=== PATIENT | male | born 1965 | race Caucasian/White ===

== ENCOUNTER 2021-04-13 09:43 | Inpatient (IN) ==
--- NOTE | 2021-04-09 16:18 | XRay Report ---
INDICATION: Pre-Op TECHNIQUE: PA and lateral upright chest x-ray COMPARISON: Previous chest x-rays dated 06/05/2020 and 08/31/2019 FINDINGS: Somewhat suboptimal evaluation. Patient is in a wheelchair and difficult to position. There is a catheter or catheter fragment projected over the right lung base. This is probably a ventriculoperitoneal catheter. It is difficult to follow this catheter cephalad and a continuous intact catheter is not identified. This is unchanged Lungs: Lungs are negative. No focal pulmonary parenchymal infiltrate or mass Heart, vascular: No significant cardiomegaly. Pulmonary vascularity is normal. No pulmonary edema or pulmonary congestion Mediastinum, joyce: No mediastinal widening. No hilar mass Pleura:No pleural fluid. No pleural-based mass or calcification Thoracic spine, ribs: No thoracic compression fracture. Ribs are negative. No fracture. No lytic lesion IMPRESSION: No acute abnormality. No interval change Interpreted and Authenticated by: Guru Kohli 04/09/21
[2021-04-09 20:18] LABS: Partial Thromboplastin Time 33.7 sec (20.0-37.0); Prothrombin Time 14.2 sec (11.9-14.5)
[2021-04-09 20:38] LABS: Basophils # (Auto) 0.04 K/mcL (0.00-0.30); Basophils % (Auto) 0.3 % (0.0-2.0); Eosinophils # (Auto) 0.09 K/mcL (0.00-0.70); Eosinophils % (Auto) 0.7 % (0.0-7.0); Hematocrit 41.5 % (40.1-51.0); Hemoglobin 13.1 g/dL (13.7-17.5); Lymphocytes # (Auto) 1.58 K/mcL (1.50-4.80); Lymphocytes % (Auto) 12.8 % (15.5-49.0); Mean Cell Volume 81.7 fL (80.0-100.0); Mean Corpuscular HGB Conc 31.6 g/dL (31.0-36.0); Mean Platelet Volume 10.1 fL (7.4-10.4); Monocytes # (Auto) 1.19 K/mcL (0.10-0.90); Monocytes % (Auto) 9.6 % (1.0-12.0); Neutrophils % (Auto) 76.6 % (38.0-78.0); Platelet Count 293 K/mcL (140-440); RBC 5.08 M/mcL (4.63-6.08); Red Cell Distribution Width 14.6 % (11.5-14.5); WBC 12.4 K/mcL (4.5-11.0)
[2021-04-09 20:53] LABS: ALT/SGPT 14 U/L (<40); AST/SGOT 20 U/L (<40); Albumin 3.7 gm/dL (3.2-5.2); Albumin/Globulin Ratio 0.9 (1.0-2.3); Alkaline Phosphatase 85 U/L (39-117); Bilirubin,Total 0.7 mg/dL (0.1-1.0); Blood Urea Nitrogen 13 mg/dL (6-20); Calcium 9.3 mg/dL (8.6-10.4); Carbon Dioxide 23 mmol/L (22-30); Chloride 99 mmol/L (96-108); Globulin 4.3 gm/dL (2.2-3.7); Glomerular Filtration Rate 123; Glucose 95 mg/dL (70-105)
--- NOTE | 2021-04-10 16:50 | EKG ---
[facility] Test Date: 2021-04-09 Pat Name: Jerman Montanez Department: RT Room: Gender: Male Adobe Layer: : 1965 Requested By: Jero Newberry Order Number: [id number] Reading MD: Robin Viveros Measurements Intervals Max Rate: 81 P: 72 MN: 145 QRS: 38 QRSD: 101 T: 44 QT: 384 QTc: 446 Interpretive Statements Sinus rhythm LATE PRECORDIAL R/S TRANSITION Electronically Signed On 04-10-2021 16:50:40 PST by Robin Viveros /store/M0/[id number]/[email or web address]/[id number]
[~2021-04-13 09:43] MED LIST: PEG 3350/NA SULF,BICARB,CL/KCL 4,000 ML ORAL.SOL PO SCH
[2021-04-13] MEDS ORDERED: PROMETHAZINE 25 MG/ML VIAL IV PRN (12:53)
[2021-04-13] MEDS ORDERED: ONDANSETRON 4 MG/2 ML VIAL IV PRN (12:53)
[2021-04-13] MEDS ORDERED: BACLOFEN 10 MG TABLET PO SCH (13:00)
[2021-04-13] MEDS ORDERED: LEVOFLOXACIN 750 MG/150 ML BAG IV ONE (13:15)
[2021-04-13] MEDS ORDERED: metroNIDAZOLE 500 MG/100 ML BAG IV ONE (13:15)
--- NOTE | 2021-04-13 13:28 | XRay Report ---
INDICATION: PREOP EVALUATION TECHNIQUE: AP portable semiupright chest x-ray COMPARISON: Previous examinations dated 04/09/2021, 06/05/2020, 08/31/2019 FINDINGS:There is a small catheter and metallic device projected over the thoracic aorta. Lungs:Lungs are negative. No focal pulmonary parenchymal infiltrate or mass Heart, vascular:No significant cardiomegaly. Pulmonary vascularity is normal. No pulmonary edema or pulmonary congestion Mediastinum, joyce:No mediastinal widening. No hilar mass Pleura:No pleural fluid. No pleural-based mass or calcification Skeletal:Negative. IMPRESSION: No acute or new abnormality Interpreted and Authenticated by: Guru Kohli 04/13/21
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
[2021-04-13] MEDS: 0.9 % SODIUM CHLORIDE 1,000 ML IV SCH (14:03)
[2021-04-13 14:53] LABS: Basophils # (Auto) 0.05 K/mcL (0.00-0.30); Basophils % (Auto) 0.5 % (0.0-2.0); Eosinophils # (Auto) 0.13 K/mcL (0.00-0.70); Eosinophils % (Auto) 1.2 % (0.0-7.0); Hematocrit 41.6 % (40.1-51.0); Lymphocytes # (Auto) 1.89 K/mcL (1.50-4.80); Mean Cell Volume 82.1 fL (80.0-100.0); Mean Corpuscular HGB Conc 31.3 g/dL (31.0-36.0); Mean Platelet Volume 9.9 fL (7.4-10.4); Monocytes # (Auto) 0.92 K/mcL (0.10-0.90); Monocytes % (Auto) 8.3 % (1.0-12.0); Platelet Count 365 K/mcL (140-440); RBC 5.07 M/mcL (4.63-6.08); Red Cell Distribution Width 14.5 % (11.5-14.5); WBC 11.1 K/mcL (4.5-11.0)
[2021-04-13] MEDS: PANTOPRAZOLE 40 MG VIAL IV SCH (17:45)
[2021-04-13] MEDS: BACLOFEN 10 MG TABLET PO SCH ×2 (17:45→21:14)
[2021-04-13] MEDS ORDERED: BISACODYL 5 MG TABLET PO SCH (18:00)
[2021-04-13] MEDS: TERAZOSIN 1 MG CAPSULE PO SCH (21:12)
[2021-04-13] MEDS: METOPROLOL SUCCINATE 50 MG TAB.XL.24H PO SCH (21:14)
[2021-04-14] MEDS: 0.9 % SODIUM CHLORIDE 1,000 ML IV SCH ×4 (02:54→21:05)
[2021-04-14] MEDS ORDERED: IPRATROPIUM/ALBUTEROL 3 ML AMPUL.NEB NEB PRN ×2 (06:00→11:42)
[2021-04-14] MEDS ORDERED: LEVOFLOXACIN 750 MG/150 ML BAG IV SCH (06:00)
[2021-04-14] MEDS ORDERED: metroNIDAZOLE 500 MG/100 ML BAG IV SCH (06:00)
[2021-04-14] MEDS ORDERED: SCOPOLAMINE 1 PATCH PATCH TOPICAL PRN (06:00)
[2021-04-14 07:10] LABS: Basophils # (Auto) 0.03 K/mcL (0.00-0.30); Basophils % (Auto) 0.3 % (0.0-2.0); Eosinophils # (Auto) 0.08 K/mcL (0.00-0.70); Eosinophils % (Auto) 0.8 % (0.0-7.0); Hematocrit 37.2 % (40.1-51.0); Hemoglobin 12.1 g/dL (13.7-17.5); Lymphocytes % (Auto) 14.1 % (15.5-49.0); Mean Cell Volume 81.6 fL (80.0-100.0); Mean Corpuscular HGB Conc 32.5 g/dL (31.0-36.0); Mean Platelet Volume 10.2 fL (7.4-10.4); Monocytes # (Auto) 0.77 K/mcL (0.10-0.90); Monocytes % (Auto) 7.8 % (1.0-12.0); Platelet Count 293 K/mcL (140-440); RBC 4.56 M/mcL (4.63-6.08); Red Cell Distribution Width 14.5 % (11.5-14.5); WBC 9.9 K/mcL (4.5-11.0)
[2021-04-14] MEDS: PANTOPRAZOLE 40 MG VIAL IV SCH ×2 (07:29→16:57)
[2021-04-14] MEDS ORDERED: BACLOFEN 10 MG TABLET PO SCH (09:00)
[2021-04-14] MEDS ORDERED: LIDOCAINE HCL/PF 100 MG/5 ML SYRINGE IV ONE (09:59)
[2021-04-14] MEDS ORDERED: KETAMINE 50 MG/ML Syringe (ANEST) IV ONE (09:59)
[2021-04-14] MEDS ORDERED: ROCURONIUM 10 MG/ML ML IV ONE (09:59)
[2021-04-14] MEDS ORDERED: MIDAZOLAM 2 MG/2 ML VIAL ONE (09:59)
[2021-04-14] MEDS ORDERED: ePHEDrine 50 MG/5 ML SYRINGE (ANEST) IV ONE (09:59)
[2021-04-14] MEDS ORDERED: GLYCOPYRROLATE 0.2 MG/ML VIAL IV ONE (09:59)
[2021-04-14] MEDS ORDERED: PROPOFOL 200 MG/20 ML VIAL IV ONE (09:59)
[2021-04-14] MEDS ORDERED: ESMOLOL 100 MG/10 ML VIAL IV ONE (09:59)
[2021-04-14] MEDS ORDERED: DEXAMETHASONE 10 MG/ML VIAL ONE (09:59)
[2021-04-14] MEDS ORDERED: ONDANSETRON 4 MG/2 ML VIAL ONE (09:59)
[2021-04-14] MEDS ORDERED: MAGNESIUM SULFATE 2 GM/50 ML BAG IV ONE (09:59)
[2021-04-14] MEDS ORDERED: methylPREDNISolone SOD SUCC 125 MG/2 ML VIAL ONE (09:59)
[2021-04-14] MEDS ORDERED: PHENYLephrine 1 MG/10 ML SYRINGE (ANEST) ONE (09:59)
[2021-04-14] MEDS ORDERED: fentaNYL 250 MCG/5 ML VIAL IV ONE (09:59)
[2021-04-14] MEDS: METOPROLOL SUCCINATE 50 MG TAB.XL.24H PO SCH ×2 (10:24→20:52)
[2021-04-14] MEDS ORDERED: fentaNYL 100 MCG/2 ML VIAL IV PRN (11:42)
[2021-04-14] MEDS ORDERED: METHOCARBAMOL 1,000 MG/10 ML VIAL IV PRN (11:42)
[2021-04-14] MEDS ORDERED: LACTATED RINGERS 250 ML IV PRN (11:42)
[2021-04-14] MEDS ORDERED: NALOXONE HCL 0.4 MG/ML VIAL IV PRN (11:42)
[2021-04-14] MEDS ORDERED: BENZOCAINE/MENTHOL 1 LOZENGE PO PRN (11:42)
[2021-04-14] MEDS ORDERED: FLUMAZENIL 0.1 MG/ML ML IV PRN (11:42)
[2021-04-14] MEDS ORDERED: LABETALOL 5 MG/ML ML IV PRN (11:42)
[2021-04-14] MEDS ORDERED: ACETAMINOPHEN 1,000 MG/100 ML BAG IV ONE (11:42)
[2021-04-14] MEDS ORDERED: LACTATED RINGERS 1,000 ML IV SCH (11:45)
--- NOTE | 2021-04-14 11:52 | Brief Operative Note ---
Brief Operative Note Date of procedure: 04/14/21 Pre-op diagnosis: pressure ulcers of buttocks;quadriplegia Post-op diagnosis: other Procedure: pressure ulcers of buttocks;quadriplegia Grafts/Implants: Yes Anesthesia: GETA Findings: dilated elongated colon Complications: none Surgeon: Jero Newberry Estimated blood loss (cc): 20 Specimens Removed/Pathology: none sent Condition: stable Disposition: PACU
[2021-04-14] MEDS: METOPROLOL TARTRATE 5 MG/5 ML VIAL IV PRN ×2 (12:23→12:29)
[2021-04-14] MEDS ORDERED: NIFEdipine 10 MG CAPSULE PO PRN (12:54)
[2021-04-14] MEDS: BACLOFEN 10 MG TABLET PO SCH ×3 (13:01→20:52)
[2021-04-14] MEDS ORDERED: hydrALAZINE 20 MG/ML VIAL IV PRN (13:08)
[2021-04-14] MEDS ORDERED: BISACODYL 5 MG TABLET PO PRN (13:11)
[2021-04-14] MEDS: ACETAMINOPHEN 500 MG TABLET PO PRN (20:51)
[2021-04-14] MEDS: DOCUSATE SODIUM 100 MG CAPSULE PO SCH (20:52)
[2021-04-14] MEDS: TERAZOSIN 1 MG CAPSULE PO SCH (20:52)
[2021-04-14] MEDS ORDERED: METOPROLOL SUCCINATE 50 MG TAB.XL.24H PO SCH (21:00)
[2021-04-14] MEDS ORDERED: TERAZOSIN 1 MG CAPSULE PO SCH (21:00)
[2021-04-15] MEDS: 0.9 % SODIUM CHLORIDE 1,000 ML IV SCH ×3 (06:10→22:59)
[2021-04-15] MEDS: PANTOPRAZOLE 40 MG VIAL IV SCH ×2 (07:19→18:00)
[2021-04-15 08:41] LABS: Basophils # (Auto) 0.02 K/mcL (0.00-0.30); Basophils % (Auto) 0.1 % (0.0-2.0); Eosinophils # (Auto) 0 K/mcL (0.00-0.70); Eosinophils % (Auto) 0 % (0.0-7.0); Hemoglobin 11.9 g/dL (13.7-17.5); Lymphocytes # (Auto) 1.26 K/mcL (1.50-4.80); Lymphocytes % (Auto) 8.9 % (15.5-49.0); Mean Cell Volume 82.6 fL (80.0-100.0); Mean Corpuscular HGB Conc 31.3 g/dL (31.0-36.0); Mean Platelet Volume 10.1 fL (7.4-10.4); Monocytes # (Auto) 1.46 K/mcL (0.10-0.90); Monocytes % (Auto) 10.3 % (1.0-12.0); Neutrophils % (Auto) 80.7 % (38.0-78.0); Platelet Count 366 K/mcL (140-440); Red Cell Distribution Width 14.7 % (11.5-14.5); WBC 14.1 K/mcL (4.5-11.0)
[2021-04-15] MEDS ORDERED: VITAMIN D3 125 MCG TABLET PO SCH (09:00)
[2021-04-15] MEDS: HYDROCHLOROTHIAZIDE 12.5 MG CAPSULE PO SCH (09:36)
[2021-04-15] MEDS: ACETAMINOPHEN 500 MG TABLET PO PRN (09:36)
[2021-04-15] MEDS: BACLOFEN 10 MG TABLET PO SCH ×4 (09:36→21:07)
[2021-04-15] MEDS: METOPROLOL SUCCINATE 50 MG TAB.XL.24H PO SCH ×2 (09:37→21:07)
[2021-04-15] MEDS: PYRIDOXINE 100 MG TABLET PO SCH (09:37)
--- NOTE | 2021-04-15 13:24 | General Surgery Progress Note ---
SUBJECTIVE Subjective Patient information: Note initiated : 04/15/21 at 1:21 pm Service Date, if different from initiated Date: [] Patient: Jerman Montanez 56 y/o M admitted on 04/13/21 for permanent colostomy. Chief Complaint: [] Principal diagnosis: Patient is status post permanent colostomy for fecal diversion Interval history: Patient is doing well. He has a viable stoma with moderate swelling. Incision looks good. There is mild abdominal distention but with good active bowel sounds Constitutional Vitals: Vital Signs Temp Pulse Resp BP Pulse Ox 98.7 F 80 16 107/73 97 04/15/21 12:55 04/15/21 12:55 04/15/21 12:55 04/15/21 12:55 04/15/21 12:55 Period Temp Pulse Resp BP Sys/Alcaraz Pulse Ox Last 24 Hr 97.4 F-98.7 F 70-90 14-18 107-170/68-96 94-98 Intake and Output 04/14/21 04/15/21 04/15/21 21:59 05:59 13:59 Intake Total 1600 300 988 Output Total 700 700 Balance 900 -400 988 Weight 254 lb Intake & Output: Intake & Output 04/14/21 04/15/21 04/15/21 21:59 05:59 13:59 Intake Total 1600 300 988 Output Total 700 700 Balance 900 -400 988 Weight 254 lb Intake: IV 1000 988 Sodium Chloride 0.9% 1,000 ml @ 1000 988 75 mls/hr IV .[id number] [facility] Rx#: [id number] Oral 600 300 Output: Urine Catheter Amount 700 700 Other: Meal Dinner Breakfast Percent of Meal Consumed 100% 100% Feeding Ability Assist with Tray Set Up Urine Appearance Clear Urine Color Bright Yellow Head Head exam: Present atraumatic, normal inspection and normocephalic Eye Eye exam: Present EOMI and PERRL Pupils: Present normal accommodation ENT ENT exam: Present normal external ear exam and normal oropharynx Respiratory Respiratory exam: Present normal respiratory exam and CTAB Cardiovascular Cardiovascular exam: Present normal rate and rhythm, RRR, +S1 and +S2; Absent JVD GI/Abdominal GI/Abdominal exam: Present diminished bowel sounds Additional comments: Incision looks good Stoma in left lower quadrant looks good Psychiatric Psychiatric exam: Present normal affect and normal mood A/P Assessment and plan (1) Colostomy status: Status: Acute (2) Quadriplegia and quadriparesis: Status: Acute (3) Hypertension: Status: Chronic Comment: Well-controlled Increasing metoprolol succinate as above Qualifiers: Hypertension type: essential hypertension Qualified Code(s): I10 - Essential (primary) hypertension (4) Autonomic dysreflexia: Status: Chronic Comment: At risk. Nifedipine provided to be used as needed for elevated blood pressure with symptoms. Patient to go to the ED if blood pressure and symptoms do not improve within 30 minutes of taking nifedipine. Narrative A/P Narrative: Continue on present therapy May need to use milk of magnesia to stimulate passage of stool Time Spent With Patient Time: Total time spent is greater than 50% in coordination of care (as documented) at patient's floor/unit and/or counseling patient:
[2021-04-15] MEDS: TERAZOSIN 1 MG CAPSULE PO SCH (21:07)
[2021-04-15] MEDS: DOCUSATE SODIUM 100 MG CAPSULE PO SCH (21:07)
[2021-04-16] MEDS: 0.9 % SODIUM CHLORIDE 1,000 ML IV SCH ×3 (00:59→14:23)
[2021-04-16] MEDS: ACETAMINOPHEN 500 MG TABLET PO PRN ×3 (04:55→20:56)
[2021-04-16] MEDS: PANTOPRAZOLE 40 MG VIAL IV SCH ×2 (07:00→17:26)
[2021-04-16] MEDS: METOPROLOL SUCCINATE 50 MG TAB.XL.24H PO SCH ×2 (08:13→20:56)
[2021-04-16] MEDS: BACLOFEN 10 MG TABLET PO SCH ×4 (08:13→20:57)
[2021-04-16] MEDS: PYRIDOXINE 100 MG TABLET PO SCH (08:14)
[2021-04-16] MEDS: HYDROCHLOROTHIAZIDE 12.5 MG CAPSULE PO SCH (08:14)
[2021-04-16] MEDS: VITAMIN D3 125 MCG TABLET PO SCH (08:14)
--- NOTE | 2021-04-16 16:32 | General Surgery Progress Note ---
SUBJECTIVE Subjective Patient information: Note initiated : 04/16/21 at 4:23 pm Service Date, if different from initiated Date: [] Patient: Jerman Montanez 56 y/o M admitted on 04/13/21 for permanent colostomy. Chief Complaint: [] Principal diagnosis: Patient is status post permanent colostomy for fecal diversion Interval history: Patient is doing well. His pain is controlled. He has some flatus per bowel movement but no bowel movement so far. He does not have any significant distention. Constitutional Vitals: Vital Signs Temp Pulse Resp BP Pulse Ox 97.5 F 69 18 107/68 96 04/16/21 15:45 04/16/21 15:45 04/16/21 15:45 04/16/21 15:45 04/16/21 15:45 Period Temp Pulse Resp BP Sys/Alcaraz Pulse Ox Last 24 Hr 97.3 F-99.4 F 69-83 18-20 97-179/49-100 94-97 Intake and Output 04/16/21 04/16/21 04/16/21 05:59 13:59 21:59 Intake Total 1200 1240 Output Total 2150 1520 Balance -950 -1520 1240 Weight 249 lb 1.6 oz Patient Weight 04/17/21 05:59 Weight 249 lb 1.6 oz Intake & Output: Intake & Output 04/16/21 04/16/21 04/16/21 05:59 13:59 21:59 Intake Total 1200 1240 Output Total 2150 1520 Balance -950 -1520 1240 Weight 249 lb 1.6 oz Intake: IV 1000 1000 Sodium Chloride 0.9% 1,000 ml @ 1000 1000 75 mls/hr IV .[id number] [facility] Rx#: [id number] Oral 200 240 Output: Urine Catheter Amount 2100 1500 Stool 50 20 Other: Meal Lunch Percent of Meal Consumed 100% Urine Appearance Clear Suprapubic Clear Urine Color Bright Yellow Straw Suprapubic Bright Yellow Urine Odor Normal Stool Color Dark Red Blood Head Head exam: Present atraumatic, normal inspection and normocephalic Eye Eye exam: Present EOMI Pupils: Present normal accommodation and PERRL ENT ENT exam: Present mucous membranes moist, normal exam and normal oropharynx Neck Neck exam: Present full ROM and normal inspection Respiratory Respiratory exam: Present normal respiratory exam and CTAB Cardiovascular Cardiovascular exam: Present normal rate and rhythm, RRR, +S1 and +S2; Absent JVD GI/Abdominal GI/Abdominal exam: Present normal bowel sounds and soft; Absent distended Additional comments: Stoma is pink and slightly swollen; Extremities Exam Extremities exam: Present full ROM and neurovascular intact Neurological Exam Additional comments: Quadriparesis Psychiatric Psychiatric exam: Present normal affect and normal mood A/P Assessment and plan (1) Quadriplegia, post-traumatic: Status: Chronic Comment: C6-7 Diminished becoming more difficult Patient would like to discuss possible elective colostomy Will refer to general surgery (2) Hypertension: Status: Chronic Comment: Well-controlled Increasing metoprolol succinate as above Qualifiers: Hypertension type: essential hypertension Qualified Code(s): I10 - Essential (primary) hypertension (3) Autonomic dysreflexia: Status: Chronic Comment: At risk. Nifedipine provided to be used as needed for elevated blood pressure with symptoms. Patient to go to the ED if blood pressure and symptoms do not improve within 30 minutes of taking nifedipine. (4) Colostomy status: Status: Acute Narrative A/P Narrative: patient continues to improve MOM Q4H X2 Time Spent With Patient Time: Total time spent is greater than 50% in coordination of care (as documented) at patient's floor/unit and/or counseling patient:
[2021-04-16] MEDS: MAGNESIUM HYDROXIDE 30 ML ORAL.SUSP PO SCH ×2 (17:25→20:56)
[2021-04-16 19:00] LABS: Basophils # (Auto) 0.04 K/mcL (0.00-0.30); Basophils % (Auto) 0.4 % (0.0-2.0); Eosinophils # (Auto) 0.09 K/mcL (0.00-0.70); Eosinophils % (Auto) 0.8 % (0.0-7.0); Hematocrit 36.3 % (40.1-51.0); Hemoglobin 11.6 g/dL (13.7-17.5); Lymphocytes % (Auto) 15.1 % (15.5-49.0); Mean Cell Volume 83.6 fL (80.0-100.0); Mean Platelet Volume 10.1 fL (7.4-10.4); Monocytes # (Auto) 0.85 K/mcL (0.10-0.90); Monocytes % (Auto) 7.5 % (1.0-12.0); Neutrophils % (Auto) 76.2 % (38.0-78.0); Platelet Count 282 K/mcL (140-440); RBC 4.34 M/mcL (4.63-6.08); Red Cell Distribution Width 14.6 % (11.5-14.5); WBC 11.3 K/mcL (4.5-11.0)
[2021-04-16] MEDS: DOCUSATE SODIUM 100 MG CAPSULE PO SCH (20:56)
[2021-04-16] MEDS: TERAZOSIN 1 MG CAPSULE PO SCH (20:57)
[2021-04-17] MEDS: 0.9 % SODIUM CHLORIDE 1,000 ML IV SCH ×4 (01:18→16:06)
[2021-04-17] MEDS: ACETAMINOPHEN 500 MG TABLET PO PRN ×3 (04:10→18:17)
[2021-04-17 07:38] LABS: ALT/SGPT 8 U/L (<40); AST/SGOT 13 U/L (<40); Albumin 3.3 gm/dL (3.2-5.2); Alkaline Phosphatase 70 U/L (39-117); Bilirubin,Direct < 0.2 mg/dL (0-0.3); Bilirubin,Total 0.6 mg/dL (0.1-1.0); Blood Urea Nitrogen 6 mg/dL (6-20); Calcium 8.3 mg/dL (8.6-10.4); Carbon Dioxide 25 mmol/L (22-30); Chloride 102 mmol/L (96-108); Globulin 3.3 gm/dL (2.2-3.7); Glomerular Filtration Rate 134; Glucose 94 mg/dL (70-105); Lactate Dehydrogenase 164 U/L (135-225); Phosphorous 2.7 mg/dL (2.5-4.5); Triglycerides 184 mg/dL (<150); Uric Acid 5.2 mg/dL (2.5-8.0)
[2021-04-17] MEDS: PYRIDOXINE 100 MG TABLET PO SCH (08:02)
[2021-04-17] MEDS: HYDROCHLOROTHIAZIDE 12.5 MG CAPSULE PO SCH (08:02)
[2021-04-17] MEDS: PANTOPRAZOLE 40 MG VIAL IV SCH ×2 (08:02→16:29)
[2021-04-17] MEDS: BACLOFEN 10 MG TABLET PO SCH ×4 (08:02→20:40)
[2021-04-17] MEDS: VITAMIN D3 125 MCG TABLET PO SCH (08:03)
[2021-04-17] MEDS: METOPROLOL SUCCINATE 50 MG TAB.XL.24H PO SCH ×2 (08:03→20:40)
--- NOTE | 2021-04-17 13:32 | General Surgery Progress Note ---
SUBJECTIVE Subjective Patient information: Note initiated : 04/17/21 at 1:28 pm Service Date, if different from initiated Date: [] Patient: Jerman Montanez 56 y/o M admitted on 04/13/21 for permanent colostomy. Chief Complaint: [] Principal diagnosis: Patient is status post permanent colostomy for fecal diversion Interval history: Patient is doing well. He had multiple bowel movements with the milk of magnesia. He is eating regular diet without difficulty. Plan is to continue inpatient treatment until has for teaching from the stomal care nurse. Probable discharge: Constitutional Vitals: Vital Signs Temp Pulse Resp BP Pulse Ox 98 F 68 17 126/76 98 04/17/21 12:00 04/17/21 12:00 04/17/21 12:00 04/17/21 12:59 04/17/21 12:00 Period Temp Pulse Resp BP Sys/Alcaraz Pulse Ox Last 24 Hr 97.3 F-98.6 F 66-75 16-24 107-157/64-89 94-98 Intake and Output 04/16/21 04/17/21 04/17/21 21:59 05:59 13:59 Intake Total 1480 1020 480 Output Total 1150 1525 800 Balance 330 -505 -320 Weight 249 lb 1.6 oz 245 lb 9.6 oz Intake & Output: Intake & Output 04/16/21 04/17/21 04/17/21 21:59 05:59 13:59 Intake Total 1480 1020 480 Output Total 1150 1525 800 Balance 330 -505 -320 Weight 249 lb 1.6 oz 245 lb 9.6 oz Intake: IV 1000 920 Sodium Chloride 0.9% 1,000 ml @ 1000 920 75 mls/hr IV .[id number] [facility] Rx#: [id number] Oral 480 100 480 Output: Urine Catheter Amount 850 750 750 Stool 300 775 50 Other: Meal Dinner Breakfast Percent of Meal Consumed 75% 75% Urine Appearance Clear Suprapubic Clear Urine Color Bright Yellow Bright Yellow Suprapubic Bright Yellow Bright Yellow Urine Odor Normal Stool Color Brown Brown Brown Stool Consistency Loose Liquid Watery ENT ENT exam: Present mucous membranes moist, normal exam and normal oropharynx Neck Neck exam: Present full ROM and normal inspection Respiratory Respiratory exam: Present normal respiratory exam and CTAB Cardiovascular Cardiovascular exam: Present normal rate and rhythm, RRR, +S1 and +S2; Absent JVD GI/Abdominal GI/Abdominal exam: Present normal bowel sounds, soft, distended (Mild distention) and tenderness (Mild incisional tenderness: Functioning stoma left lower quadrant) A/P Assessment and plan (1) Colostomy status: Status: Acute (2) Quadriplegia and quadriparesis: Status: Acute (3) Hypertension: Status: Chronic Comment: Well-controlled Increasing metoprolol succinate as above Qualifiers: Hypertension type: essential hypertension Qualified Code(s): I10 - Essential (primary) hypertension (4) Autonomic dysreflexia: Status: Chronic Comment: At risk. Nifedipine provided to be used as needed for elevated blood pressure with symptoms. Patient to go to the ED if blood pressure and symptoms do not improve within 30 minutes of taking nifedipine. Narrative A/P Narrative: Patient continues to do well We will check labs in the morning Probable discharge on Monday after family patient had more teaching with stoma Time Spent With Patient Time: Total time spent is greater than 50% in coordination of care (as documented) at patient's floor/unit and/or counseling patient:
[2021-04-17] MEDS: DOCUSATE SODIUM 100 MG CAPSULE PO SCH (20:40)
[2021-04-17] MEDS: TERAZOSIN 1 MG CAPSULE PO SCH (20:40)
[2021-04-18] MEDS: ACETAMINOPHEN 500 MG TABLET PO PRN ×4 (01:32→21:28)
[2021-04-18] MEDS: 0.9 % SODIUM CHLORIDE 1,000 ML IV SCH ×2 (03:56→05:36)
[2021-04-18] MEDS: PANTOPRAZOLE 40 MG VIAL IV SCH ×2 (06:48→16:09)
[2021-04-18] MEDS: PYRIDOXINE 100 MG TABLET PO SCH (08:16)
[2021-04-18] MEDS: VITAMIN D3 125 MCG TABLET PO SCH (08:16)
[2021-04-18] MEDS: HYDROCHLOROTHIAZIDE 12.5 MG CAPSULE PO SCH (08:16)
[2021-04-18] MEDS: METOPROLOL SUCCINATE 50 MG TAB.XL.24H PO SCH ×2 (08:16→21:28)
[2021-04-18] MEDS: BACLOFEN 10 MG TABLET PO SCH ×4 (08:32→21:28)
--- NOTE | 2021-04-18 09:07 | General Surgery Progress Note ---
SUBJECTIVE Subjective Patient information: Note initiated : 04/18/21 at 9:03 am Service Date, if different from initiated Date: [] Patient: Jerman Montanez 56 y/o M admitted on 04/13/21 for permanent colostomy. Chief Complaint: [POD #4 Diverting Colostomy ] Doing well this am, denies much in the way of pain, tolerating diet well with good stomal function Principal diagnosis: Patient is status post permanent colostomy for fecal diversion Constitutional Vitals: Vital Signs Temp Pulse Resp BP Pulse Ox 97.9 F 66 20 129/84 97 04/18/21 07:13 04/18/21 03:35 04/18/21 07:13 04/18/21 07:13 04/18/21 07:13 Period Temp Pulse Resp BP Sys/Alcaraz Pulse Ox Last 24 Hr 97.1 F-98.7 F 63-71 15-22 109-140/63-92 97-98 Intake and Output 04/17/21 04/18/21 04/18/21 21:59 05:59 13:59 Intake Total 1480 1050 Output Total 575 1600 Balance 905 -550 Weight 251 lb 6.4 oz Intake & Output: Intake & Output 04/17/21 04/18/21 04/18/21 21:59 05:59 13:59 Intake Total 1480 1050 Output Total 575 1600 Balance 905 -550 Weight 251 lb 6.4 oz Intake: IV 1000 1000 Sodium Chloride 0.9% 1,000 ml @ 1000 1000 75 mls/hr IV .[id number] [facility] Rx#: [id number] Oral 480 50 Output: Urine Catheter Amount 550 1450 Stool 25 150 Other: Meal Dinner Percent of Meal Consumed 90% Feeding Ability Assist with Tray Set Up Urine Appearance Clear Clear Urine Color Bright Yellow Bright Yellow Suprapubic Bright Yellow Urine Odor Normal Stool Color Brown Stool Consistency Liquid General appearance: cooperative and no acute distress Head Head exam: Present atraumatic and normocephalic Respiratory Additional comments: no respiratory distress Cardiovascular Cardiovascular exam: Present normal rate and rhythm and RRR GI/Abdominal Additional comments: stoma pink and well perfused, good amounts of gas and stool in bag midline incision looks intact without evidence of drainage or infection A/P Narrative A/P Narrative: POD #4 Diverting Colostomy Doing Well Saline Lock IVF Stomal teaching and possible discharge this coming week Time Spent With Patient Time: Total time spent is greater than 50% in coordination of care (as documented) at patient's floor/unit and/or counseling patient:
[2021-04-18] MEDS: DOCUSATE SODIUM 100 MG CAPSULE PO SCH (21:28)
[2021-04-18] MEDS: TERAZOSIN 1 MG CAPSULE PO SCH (21:28)
[2021-04-19] MEDS: ACETAMINOPHEN 500 MG TABLET PO PRN ×2 (03:32→11:14)
[2021-04-19 07:06] LABS: Hematocrit 41.3 % (40.1-51.0); Mean Cell Volume 83.1 fL (80.0-100.0); Mean Corpuscular HGB Conc 31.5 g/dL (31.0-36.0); Mean Platelet Volume 10.3 fL (7.4-10.4); Platelet Count 212 K/mcL (140-440); RBC 4.97 M/mcL (4.63-6.08); Red Cell Distribution Width 14.7 % (11.5-14.5); WBC 7.9 K/mcL (4.5-11.0)
[2021-04-19 07:50] LABS: Blood Urea Nitrogen 12 mg/dL (6-20); Calcium 9.1 mg/dL (8.6-10.4); Carbon Dioxide 22 mmol/L (22-30); Chloride 102 mmol/L (96-108); Glomerular Filtration Rate 123; Glucose 98 mg/dL (70-105)
[2021-04-19] MEDS: BACLOFEN 10 MG TABLET PO SCH ×2 (08:01→13:20)
[2021-04-19] MEDS: PANTOPRAZOLE 40 MG VIAL IV SCH (08:01)
[2021-04-19] MEDS: VITAMIN D3 125 MCG TABLET PO SCH (08:02)
[2021-04-19] MEDS: HYDROCHLOROTHIAZIDE 12.5 MG CAPSULE PO SCH (08:02)
[2021-04-19] MEDS: METOPROLOL SUCCINATE 50 MG TAB.XL.24H PO SCH (08:02)
[2021-04-19] MEDS: PYRIDOXINE 100 MG TABLET PO SCH (08:02)
--- NOTE | 2021-04-19 13:01 | Discharge Summary ---
Discharge Provider Provider Patient information: Note initiated : 04/19/21 at 12:50 pm Service Date, if different from initiated Date: [] Patient: Jerman Montanez 56 y/o M admitted on 04/13/21 for permanent colostomy. Chief Complaint: [] Date of admission: 04/13/21 09:43 Discharge date: 04/19/21 Primary care physician: Guru Vásquez DO Admitting clinician: Jero Newberry Attending physician on admission: Jero Newberry Attending physician on discharge: Jero Newberry Discharging clinician: Jero Newberry COURSE Hospital Course Hospital course: 56-year-old male with quadriparesis from C6 spinal injury. Patient is functional with maximal assistance. A permanent colostomy was placed to divert the fecal stream and allow his perineum and pernell- anal area to heal. Patient was postoperatively and has recovered from the surgery very nicely. He has been followed by the stoma and wound nurse and they are getting more information about stoma care. He will need to have home health assistance for 4 to 6 weeks to assure that he and his mother are capable of stoma management. Discharge diagnosis: Quadriparesis Secondary discharge diagnosis: Chronic perineal pressure ulcers Hypertension Autonomic dysreflexia Neurogenic bladder Reason for admission: Colostomy status post procedure Procedures: Permanent colostomy placed Pertinent studies/significant findings: None Complications: None Time Spent with Patient Time attestation: Total time spent providing and/or coordinating discharge services: Physical Examination Vital Signs Vital signs: Temp Pulse Resp BP Pulse Ox 98.6 F 78 19 135/74 96 04/19/21 12:00 04/19/21 12:00 04/19/21 12:00 04/19/21 12:00 04/19/21 12:00 General physical appearance General physical exam: well developed, well nourished, no distress and chronically ill Eyes Eye exam: PERRL and normal ocular movement ENT ENT exam: normal mucosa and no congestion Head Head exam IM: Present atraumatic, normal inspection and normocephalic Neck Neck exam: limited ROM and other (Posterior cervical fusion) Cardiovascular Cardiovascular exam IM: Present normal rate and rhythm, RRR, +S1 and +S2; Absent JVD Respiratory Respiratory exam: normal respiratory effort and clear to auscultation Abdomen Abdomen: Present soft, bowel sounds (Active bowel sounds) and surgical scars (Functioning stoma left lower quadrant) Neurologic Neurologic: Present other (C6-7 quadriparesis) Musculoskeletal Musculoskeletal: Present other (Paresis of upper and lower extremity) Psychiatric Psychiatric: Present oriented to time, oriented to person, oriented to place, speech is normal and memory intact Discharge Plan Patient/Caregiver Discharge Instructions Activity: increase activity as tolerated and other Diet: Regular Diet Stand Alone Forms: Work/Release Restrictions Prescriptions: No Action bisacodyl 5 mg tablet 10 mg PO Q2D PRN (Reason: constipation) 0RF ibuprofen 200 mg tablet 200 mg PO QDAY PRN (Reason: muscle soreness) 0RF Label Comments: not currently on medication list nifedipine 10 mg capsule 10 mg PO ONCE PRN (Reason: Autonomic dysreflexia with high blood pressure) Qty: 7 0RF Label Comments: currently not using Rx Instructions: To ER if symptoms & blood pressure do not improve within 30 min terazosin 1 mg capsule 1 mg PO QHS Qty: 90 3RF doxycycline hyclate 100 mg capsule 100 mg PO QDAY Qty: 14 0RF Rx Instructions: Ensure you don't take Magnesium with DOXY. glucosamine sulfate 500 mg tablet 500 mg PO QDAY PRN (Reason: supplement) 0RF Rx Instructions: administer with meals triamcinolone acetonide 0.1 % cream 1 applic TOPICAL BID PRN (Reason: Itching) 0RF docusate sodium 100 mg tablet 300 mg PO HS 0RF nystatin 100,000 unit/gram powder 1 applic TOPICAL TID PRN (Reason: Rash) 0RF Label Comments: not currently on medication list (DME) Wheelchair Repair Qty: 1 0RF Rx Instructions: as directed (DME) Tenodesis Splint Qty: 1 0RF Dose Instruction: As directed Rx Instructions: As directed metoprolol succinate 50 mg tablet extended release 24 hr 50 mg PO BID Qty: 180 3RF hydrochlorothiazide 12.5 mg tablet 12.5 mg PO QDAY Qty: 90 3RF wheat dextrin 1 EACH powder in packet 1 each PO QDAY 0RF garlic 1,000 MG capsule 1,200 mg PO DAILY PRN (Reason: supplement) 0RF Label Comments: not currently on medication list cholecalciferol (vitamin D3) 5,000 UNIT capsule 5,000 unit PO DAILY 0RF turmeric 400 mg Capsule 800 mg PO DAILY 0RF acetaminophen 500 mg Tablet 500 mg PO QDAY PRN (Reason: Pain) 0RF baclofen 10 mg tablet 30 mg PO QAM 0RF Rx Instructions: 30 mg PO QAM and 20mg TID (noon,1600,2000); acetic acid 0.25 % solution 50 ml IRRIGATION .qod Qty: 8000 10RF Rx Instructions: Irrigate bladder every other day with 60 cc of solution. pyridoxine (vitamin B6) 50 mg PO QDAY 0RF Follow Up Plan Follow up with: Jero Newberry MD [Physician] - (Office follow-up in 3 weeks) Patient Disposition: Home Health Service Prognosis: Fair Rehab Potential: Fair I certify that the patient requires SNF services: No Overall status at discharge: patient is progressing back to baseline Discharge Orders: Discharge Order (Routine); Ordered 04/19/21 Ordered By: Jero Newberry Pending Pending Pending: Resuscitation Status Full Code Diet GI Soft/Transitional Start MonApr 14 1158 Acetaminophen (Acetaminophen 500 Mg Tablet) 1,000 mg PO Q6HP PRN; Protocol PRN Reason: Per Pain Protocol Last Admin: 04/19/21 11:14 Dose: 1,000 mg Documented by: Admin: 04/19/21 03:32 Dose: 1,000 mg Documented by: Admin: 04/18/21 21:28 Dose: 1,000 mg Documented by: Admin: 04/18/21 14:04 Dose: 1,000 mg Documented by: Admin: 04/18/21 08:16 Dose: 1,000 mg Documented by: Admin: 04/18/21 01:32 Dose: 1,000 mg Documented by: Admin: 04/17/21 18:17 Dose: 1,000 mg Documented by: Admin: 04/17/21 11:25 Dose: 1,000 mg Documented by: Admin: 04/17/21 04:10 Dose: 1,000 mg Documented by: Admin: 04/16/21 20:56 Dose: 1,000 mg Documented by: Admin: 04/16/21 14:24 Dose: 1,000 mg Documented by: LINETTE Baclofen (Baclofen 10 Mg Tablet) 20 mg PO TID@1300,1700,2100 [facility] Last Admin: 04/18/21 21:28 Dose: 20 mg Documented by: Admin: 04/18/21 16:09 Dose: 20 mg Documented by: Admin: 04/18/21 13:14 Dose: 20 mg Documented by: Admin: 04/17/21 20:40 Dose: 20 mg Documented by: Admin: 04/17/21 16:29 Dose: 20 mg Documented by: Admin: 04/17/21 12:58 Dose: 20 mg Documented by: Admin: 04/16/21 20:57 Dose: 20 mg Documented by: Admin: 04/16/21 17:26 Dose: 20 mg Documented by: Admin: 04/16/21 12:53 Dose: 20 mg Documented by: Admin: 04/15/21 21:07 Dose: 20 mg Documented by: Admin: 04/15/21 18:00 Dose: 20 mg Documented by: Admin: 04/15/21 13:50 Dose: 20 mg Documented by: Admin: 04/14/21 20:52 Dose: 20 mg Documented by: Admin: 04/14/21 15:59 Dose: 20 mg Documented by: Admin: 04/14/21 13:01 Dose: Not Given Documented by: Admin: 04/13/21 21:14 Dose: 20 mg Documented by: Admin: 04/13/21 17:45 Dose: 20 mg Documented by: JESSE Baclofen (Baclofen 10 Mg Tablet) 30 mg PO [facility] Admin: 04/19/21 08:01 Dose: 30 mg Documented by: Admin: 04/18/21 08:32 Dose: 30 mg Documented by: Admin: 04/17/21 08:02 Dose: 30 mg Documented by: Admin: 04/16/21 08:13 Dose: 30 mg Documented by: Admin: 04/15/21 09:36 Dose: 30 mg Documented by: LAURA Docusate Sodium (Docusate Sodium 100 Mg Capsule) 300 mg PO [facility] Last Admin: 04/18/21 21:28 Dose: 300 mg Documented by: Admin: 04/17/21 20:40 Dose: 300 mg Documented by: Admin: 04/16/21 20:56 Dose: 300 mg Documented by: Admin: 04/15/21 21:07 Dose: 300 mg Documented by: Admin: 04/14/21 20:52 Dose: 300 mg Documented by: NANCY Hydralazine HCl (Hydralazine 20 Mg/Ml Vial) 10 mg IV Q4-6HP PRN PRN Reason: Hypertension Last Admin: 04/16/21 04:11 Dose: 10 mg Documented by: RICH Hydrochlorothiazide (Hydrochlorothiazide 12.5 Mg Capsule) 12.5 mg PO DAILY [facility] Last Admin: 04/19/21 08:02 Dose: 12.5 mg Documented by: Admin: 04/18/21 08:16 Dose: 12.5 mg Documented by: Admin: 04/17/21 08:02 Dose: 12.5 mg Documented by: Admin: 04/16/21 08:14 Dose: 12.5 mg Documented by: Admin: 04/15/21 09:36 Dose: 12.5 mg Documented by: [id number] Metoprolol Succinate (Metoprolol Succinate 50 Mg Tab.Xl.24h) 50 mg PO BID [facility] Last Admin: 04/19/21 08:02 Dose: 50 mg Documented by: Admin: 04/18/21 21:28 Dose: 50 mg Documented by: Admin: 04/18/21 08:16 Dose: 50 mg Documented by: Admin: 04/17/21 20:40 Dose: 50 mg Documented by: Admin: 04/17/21 08:03 Dose: 50 mg Documented by: Admin: 04/16/21 20:56 Dose: 50 mg Documented by: Admin: 04/16/21 08:13 Dose: 50 mg Documented by: Admin: 04/15/21 21:07 Dose: 50 mg Documented by: Admin: 04/15/21 09:37 Dose: 50 mg Documented by: [id number] Admin: 04/14/21 20:52 Dose: 50 mg Documented by: Admin: 04/14/21 10:24 Dose: Not Given Documented by: Admin: 04/13/21 21:14 Dose: 50 mg Documented by: [email or web address] Pantoprazole Sodium (Pantoprazole 40 Mg Vial) 40 mg IV BIDAC [facility] Admin: 04/19/21 08:01 Dose: 40 mg Documented by: Admin: 04/18/21 16:09 Dose: 40 mg Documented by: Admin: 04/18/21 06:48 Dose: 40 mg Documented by: Admin: 04/17/21 16:29 Dose: 40 mg Documented by: Admin: 04/17/21 08:02 Dose: 40 mg Documented by: Admin: 04/16/21 17:26 Dose: 40 mg Documented by: Admin: 04/16/21 07:00 Dose: 40 mg Documented by: Admin: 04/15/21 18:00 Dose: 40 mg Documented by: Admin: 04/15/21 07:19 Dose: 40 mg Documented by: Admin: 04/14/21 16:57 Dose: 40 mg Documented by: Admin: 04/14/21 07:29 Dose: 40 mg Documented by: Admin: 04/13/21 17:45 Dose: 40 mg Documented by: JESSE Pyridoxine HCl (Pyridoxine 100 Mg Tablet) 50 mg PO DAILY [facility] Admin: 04/19/21 08:02 Dose: 50 mg Documented by: Admin: 04/18/21 08:16 Dose: 50 mg Documented by: Admin: 04/17/21 08:02 Dose: 50 mg Documented by: Admin: 04/16/21 08:14 Dose: 50 mg Documented by: Admin: 04/15/21 09:37 Dose: 50 mg Documented by: [id number] Terazosin HCl (Terazosin 1 Mg Capsule) 1 mg PO HS [facility] Admin: 04/18/21 21:28 Dose: 1 mg Documented by: Admin: 04/17/21 20:40 Dose: 1 mg Documented by: Admin: 04/16/21 20:57 Dose: 1 mg Documented by: Admin: 12/09/21 21:07 Dose: 1 mg Documented by: Admin: 04/14/21 20:52 Dose: 1 mg Documented by: Admin: 04/13/21 21:12 Dose: 1 mg Documented by: NANCY Vitamin D (Vitamin D3 125 Mcg Tablet) 125 mcg PO DAILY [facility] Last Admin: 04/19/21 08:02 Dose: 125 mcg Documented by: Admin: 04/18/21 08:16 Dose: 125 mcg Documented by: Admin: 04/17/21 08:03 Dose: 125 mcg Documented by: Admin: 04/16/21 08:14 Dose: 125 mcg Documented by: LINETTE Shift Summary 04/19/21 02:28 Shift Summary by Wayne Orlando Pt has rested on & off tonight. He has generalized aches - Tylenol 1000mg PO given w/ HS meds @ 2120. No N/V. LLQ ostomy beefy red - emptied for flatus x2 thus far this shift - sm amt liquid stool output so far this shift. S.P. cath draining clear yellow urine. Stefan lift for TX to & from his power W/C - has not been OOB this shift - was up yesterday. HX of being incomplete quad. Saline locks to his RT hand & LT A/C -flushed & patent. Pt has mepilex in place to LT scrotum, & LT buttocks. Midline ABD incision w/ sarah beth in place & film dressing covering - sm amt bloody drainage. Turn Q 2hr w/ heelz-up & ATR system in use. VS - WNL on R.A.. He is A&O x4, calm, pleasant, & cooperative. Initialized on 04/19/21 02:28 - END OF NOTE
--- NOTE | 2021-04-23 16:27 | Operative Note ---
DATE OF OPERATION: 04/14/2021 PREOPERATIVE DIAGNOSES: Pressure ulcer of the buttocks, quadriplegia, fecal incontinence. POSTOPERATIVE DIAGNOSES: Pressure ulcer of the buttocks, quadriplegia, fecal incontinence. PROCEDURE: Diverting end colostomy. SURGEON: Jero Newberry M.D. DESCRIPTION OF PROCEDURE: Under general anesthesia, the patient's abdomen was prepped and draped in a sterile field. Timeout procedure was carried out as per protocol. Lower midline incision was made and extended to the peritoneal cavity. The left colon was very redundant. It was pulled into the operating field. A window was made in the mesocolon and the colon was divided in the distal sigmoid. The sigmoid stump was reinforced using a line of [place] 60 sarah beth also. The mesocolon was divided until adequate length was obtained to pull through the anterior abdominal wall. An Allis clamp was used to grasp the skin correction between the umbilicus and the anterior superior iliac spine. A round incision was made at this point. Using electrocautery, the subcutaneous tissue and muscle and fascia were divided down to the peritoneum. This incision was stretched. An Alex clamp was placed through the incision and the end of the sigmoid was grasped and pulled through the abdominal wall. Under direct vision, the colon was sutured to the peritoneum circumferentially using multiple sutures of 3-0 silk. Irrigation was carried out. Palpation of the proximal colon and small bowel was unremarkable. Sponge, needle, instrument, and blade counts were verified as correct. The fascia and peritoneum were closed with running #1 Prolene. Subcutaneous tissue was closed with 2-0 Monocryl. Skin was closed with sarah beth. A towel was placed over the incision. The colostomy was then matured. The wall of the sigmoid was sutured circumferentially to the anterior rectus fascia using multiple interrupted 3-0 silk sutures. The end of the colon was excised and the end of the colon was sutured to the dermis using running locking 3-0 Vicryl. A stoma appliance was placed. The patient tolerated the procedure well. Tegaderm was placed over the incision. The patient was awakened and transferred to the postanesthetic care unit in satisfactory condition. LCS:disha Job ID: [id number] Doc ID: [id number] Jero Newberry M.D.
== END 2021-04-19 14:20 | disposition home health service (06) | DRG 982 ==
LOC: MEDSUR 09:43
PROVIDERS: ADMIT Family Medicine Adult Medicine; ATTEND Family Medicine Adult Medicine

== ENCOUNTER 2023-12-13 00:04 | Inpatient (IN) ==
[2023-12-13] MEDS ORDERED: IOPAMIDOL 100 ML BOTTLE IV ONE (00:05)
[2023-12-13] MEDS: ACETAMINOPHEN 1,000 MG/100 ML BAG IV ONE (00:49)
[2023-12-13] MEDS: 0.9 % SODIUM CHLORIDE 1,000 ML IV ONE ×3 (00:49→03:05)
[2023-12-13 01:31] LABS: Basophils # (Auto) 0.02 K/mcL (0.00-0.30); Basophils % (Auto) 0.1 % (0.0-2.0); Eosinophils # (Auto) 0 K/mcL (0.00-0.70); Eosinophils % (Auto) 0 % (0.0-7.0); Hematocrit 48.5 % (40.1-51.0); Hemoglobin 14.8 g/dL (13.7-17.5); Lymphocytes # (Auto) 1.04 K/mcL (1.50-4.80); Lymphocytes % (Auto) 4.8 % (15.5-49.0); Mean Cell Volume 84.5 fL (80.0-100.0); Mean Corpuscular HGB Conc 30.5 g/dL (31.0-36.0); Mean Platelet Volume 10.7 fL (8.8-12.5); Monocytes # (Auto) 2.02 K/mcL (0.10-0.90); Monocytes % (Auto) 9.3 % (1.0-12.0); Neutrophils % (Auto) 85.4 % (38.0-78.0); Platelet Count 272 K/mcL (140-440); RBC 5.74 M/mcL (4.63-6.08); Red Cell Distribution Width 14.4 % (11.5-14.5); WBC 21.6 K/mcL (4.5-11.0)
[2023-12-13 01:58] LABS: ALT/SGPT < 5 U/L (0-40); AST/SGOT 16 U/L (<40); Albumin 4.2 gm/dL (3.2-5.2); Albumin/Globulin Ratio 1.1 (1.0-2.3); Alkaline Phosphatase 114 U/L (39-117); Bilirubin,Total 1.7 mg/dL (0.1-1.0); Blood Urea Nitrogen 16 mg/dL (6-20); Calcium 9.8 mg/dL (8.6-10.4); Carbon Dioxide 25 mmol/L (22-30); Chloride 97 mmol/L (96-108); Glomerular Filtration Rate 132; Glucose 94 mg/dL (70-105); Potassium 3.4 mmol/L (3.3-5.1); Sodium 138 mmol/L (133-145)
[2023-12-13] MEDS: cefTRIAXone 2 GM in DEXTROSE 5% IN WATER 50 ML IV ONE (03:05)
[2023-12-13] MEDS: AZITHROMYCIN 500 MG in DEXTROSE 5% IN WATER 250 ML IV ONE (03:35)
[2023-12-13 05:12] LABS: Appearance,Urine CLOUDY (Clear); Bilirubin,Urine Negative (Negative); Color,Urine AMBER; Culture Indicated,Urine Yes; Glucose,Urine (UA) Negative (Negative); Ketones,Urine 20 mg/dL (Negative); Leukocyte Esterase,Urine 250 /uL (Negative); Nitrate,Urine Negative (Negative); Protein,Urine 100 mg/dL (Negative); Specific Gravity,Urine 1.015 (1.000-1.035); Urine Blood Large ery/mcL (Negative); Urine RBC 93 /hpf (0-3); Urine Squamous Epithelial Cell 0 /hpf (0-4); Urine WBC 34 /hpf (0-4)
[2023-12-13] MEDS ORDERED: ACETAMINOPHEN 500 MG TABLET PO PRN (08:56)
[2023-12-13] MEDS ORDERED: IPRATROPIUM/ALBUTEROL 3 ML AMPUL.NEB NEB PRN (09:12)
[2023-12-13] MEDS ORDERED: VANCOMYCIN PER PHARMACY IV SCH (09:12)
[2023-12-13] MEDS ORDERED: ONDANSETRON 4 MG/2 ML VIAL IV PRN (09:12)
[2023-12-13] MEDS: DOCUSATE SODIUM 100 MG CAPSULE PO SCH (09:24)
[2023-12-13] MEDS: BACLOFEN 10 MG TABLET PO SCH ×2 (09:24→11:44)
[2023-12-13] MEDS: 0.9 % SODIUM CHLORIDE 1,000 ML IV SCH (09:25)
[2023-12-13] MEDS: ACETAMINOPHEN 325 MG TABLET PO PRN (10:26)
[2023-12-13] MEDS: PIPERACILLIN SODIUM/TAZOBACTAM 3.375 GM in DEXTROSE 5% IN WATER 50 ML IV ONE (10:26)
[2023-12-13] MEDS: VANCOMYCIN 1,250 MG in 0.9 % SODIUM CHLORIDE 500 ML IV SCH (11:39)
[2023-12-13] MEDS: DILTIAZEM 25 MG/5 ML VIAL IV ONE ×2 (11:48→14:21)
[2023-12-13] MEDS: COLD IV SCH (11:49)
[2023-12-13] MEDS: SODIUM CHLORIDE IV SCH (11:49)
[2023-12-13] MEDS: PIPERACILLIN SODIUM/TAZOBACTAM 3.375 GM in DEXTROSE 5% IN WATER 50 ML IV SCH (12:00)
[2023-12-13] MEDS: POTASSIUM CHLORIDE 20 MEQ TABLET PO ONE (13:28)
[2023-12-13] MEDS: 0.9 % SODIUM CHLORIDE 10 ML SYRINGE IV SCH (13:31)
[2023-12-13] MEDS: PIPERACILLIN SODIUM/TAZOBACTAM 3.375 GM in DEXTROSE 5% IN WATER 100 ML IV SCH (14:37)
[2023-12-13] MEDS: DILTIAZEM 125 MG in DEXTROSE 5% IN WATER 100 ML IV PRN (14:54)
[2023-12-13] MEDS: 0.9 % SODIUM CHLORIDE 250 ML IV PRN (14:56)
[2023-12-13] MEDS: POTASSIUM CHLORIDE 20 MEQ TABLET PO SCH (17:50)
[2023-12-13] MEDS: METOPROLOL SUCCINATE 50 MG TAB.XL.24H PO SCH (20:26)
[2023-12-13] MEDS: traZODone HCL 50 MG TABLET PO PRN (20:26)
[2023-12-13] MEDS: APIXABAN 5 MG TABLET PO SCH (20:26)
[2023-12-13] MEDS: SENNOSIDES 1 TABLET PO SCH (21:03)
[2023-12-14 06:45] LABS: Basophils # (Auto) 0.02 K/mcL (0.00-0.30); Basophils % (Auto) 0.2 % (0.0-2.0); Eosinophils # (Auto) 0.03 K/mcL (0.00-0.70); Eosinophils % (Auto) 0.3 % (0.0-7.0); Hemoglobin 10.2 g/dL (13.7-17.5); Lymphocytes # (Auto) 0.64 K/mcL (1.50-4.80); Lymphocytes % (Auto) 6.1 % (15.5-49.0); Mean Cell Volume 89.7 fL (80.0-100.0); Mean Corpuscular HGB Conc 29.1 g/dL (31.0-36.0); Mean Platelet Volume 10.7 fL (8.8-12.5); Monocytes # (Auto) 0.87 K/mcL (0.10-0.90); Monocytes % (Auto) 8.3 % (1.0-12.0); Neutrophils % (Auto) 84.4 % (38.0-78.0); Platelet Count 149 K/mcL (140-440); Red Cell Distribution Width 14.7 % (11.5-14.5); WBC 10.4 K/mcL (4.5-11.0)
[2023-12-14 06:53] LABS: ALT/SGPT < 5 U/L (<40); AST/SGOT 11 U/L (<40); Albumin 3.1 gm/dL (3.2-5.2); Albumin/Globulin Ratio 1.1 (1.0-2.3); Alkaline Phosphatase 73 U/L (39-117); Bilirubin,Total 0.5 mg/dL (0.1-1.0); Blood Urea Nitrogen 12 mg/dL (6-20); Calcium 8.5 mg/dL (8.6-10.4); Carbon Dioxide 24 mmol/L (22-30); Chloride 110 mmol/L (96-108); Globulin 2.7 gm/dL (2.2-3.7); Glomerular Filtration Rate 149; Glucose 105 mg/dL (70-105); Potassium 3.7 mmol/L (3.3-5.1); Sodium 143 mmol/L (133-145)
[2023-12-14] MEDS: ACETAMINOPHEN 325 MG TABLET PO PRN (08:20)
[2023-12-14] MEDS ORDERED: LEVALBUTEROL 1.25 MG/3 ML AMPUL.NEB NEB PRN (11:44)
[2023-12-14] MEDS: POTASSIUM CHLORIDE 20 MEQ/15 ML ML PO SCH (17:12)
[2023-12-15 07:21] LABS: Basophils # (Auto) 0.02 K/mcL (0.00-0.30); Basophils % (Auto) 0.2 % (0.0-2.0); Eosinophils # (Auto) 0.03 K/mcL (0.00-0.70); Eosinophils % (Auto) 0.3 % (0.0-7.0); Hematocrit 34.1 % (40.1-51.0); Hemoglobin 9.9 g/dL (13.7-17.5); Lymphocytes # (Auto) 0.55 K/mcL (1.50-4.80); Lymphocytes % (Auto) 5.9 % (15.5-49.0); Mean Cell Volume 90.5 fL (80.0-100.0); Mean Platelet Volume 11.3 fL (8.8-12.5); Monocytes # (Auto) 1.01 K/mcL (0.10-0.90); Monocytes % (Auto) 10.8 % (1.0-12.0); Neutrophils % (Auto) 82.3 % (38.0-78.0); Platelet Count 93 K/mcL (140-440); RBC 3.77 M/mcL (4.63-6.08); Red Cell Distribution Width 14.5 % (11.5-14.5); WBC 9.4 K/mcL (4.5-11.0)
[2023-12-15 07:32] LABS: ALT/SGPT < 5 U/L (<40); AST/SGOT 11 U/L (<40); Albumin 2.8 gm/dL (3.2-5.2); Alkaline Phosphatase 71 U/L (39-117); Bilirubin,Total 0.4 mg/dL (0.1-1.0); Blood Urea Nitrogen 8 mg/dL (6-20); Calcium 8.7 mg/dL (8.6-10.4); Carbon Dioxide 26 mmol/L (22-30); Chloride 108 mmol/L (96-108); Globulin 2.9 gm/dL (2.2-3.7); Glomerular Filtration Rate 175; Glucose 117 mg/dL (70-105); Potassium 3.5 mmol/L (3.3-5.1); Sodium 142 mmol/L (133-145)
[2023-12-15] MEDS: POTASSIUM CHLORIDE 20 MEQ TABLET PO SCH (09:15)
[2023-12-15] MEDS: METOPROLOL SUCCINATE 50 MG TAB.XL.24H PO SCH (21:40)
[2023-12-16 05:40] LABS: ALT/SGPT < 5 U/L (<40); AST/SGOT 14 U/L (<40); Albumin 2.9 gm/dL (3.2-5.2); Albumin/Globulin Ratio 0.9 (1.0-2.3); Alkaline Phosphatase 73 U/L (39-117); Bilirubin,Total 0.4 mg/dL (0.1-1.0); Blood Urea Nitrogen 6 mg/dL (6-20); Calcium 8.8 mg/dL (8.6-10.4); Carbon Dioxide 30 mmol/L (22-30); Chloride 105 mmol/L (96-108); Globulin 3.1 gm/dL (2.2-3.7); Glomerular Filtration Rate 175; Glucose 117 mg/dL (70-105); Potassium 3.6 mmol/L (3.3-5.1); Sodium 141 mmol/L (133-145)
[2023-12-16] MEDS: DILTIAZEM 25 MG/5 ML VIAL IV ONE ×4 (05:53→06:52)
[2023-12-16 06:51] LABS: Basophils # (Auto) 0.01 K/mcL (0.00-0.30); Basophils % (Auto) 0.1 % (0.0-2.0); Eosinophils # (Auto) 0.03 K/mcL (0.00-0.70); Eosinophils % (Auto) 0.3 % (0.0-7.0); Hematocrit 34.9 % (40.1-51.0); Hemoglobin 10.3 g/dL (13.7-17.5); Lymphocytes # (Auto) 0.66 K/mcL (1.50-4.80); Lymphocytes % (Auto) 7.2 % (15.5-49.0); Mean Cell Volume 88.8 fL (80.0-100.0); Mean Corpuscular HGB Conc 29.5 g/dL (31.0-36.0); Mean Platelet Volume 10.9 fL (8.8-12.5); Monocytes # (Auto) 1.14 K/mcL (0.10-0.90); Monocytes % (Auto) 12.4 % (1.0-12.0); Neutrophils % (Auto) 79.6 % (38.0-78.0); Platelet Count 39 K/mcL (140-440); RBC 3.93 M/mcL (4.63-6.08); Red Cell Distribution Width 14.1 % (11.5-14.5); WBC 9.2 K/mcL (4.5-11.0)
[2023-12-16] MEDS ORDERED: 0.9 % SODIUM CHLORIDE 1,000 ML IV SCH (07:15)
[2023-12-16] MEDS: DILTIAZEM 125 MG in DEXTROSE 5% IN WATER 100 ML IV SCH (08:23)
[2023-12-16] MEDS: traMADol 50 MG TABLET PO PRN (08:58)
[2023-12-16] MEDS: cefTRIAXone 2 GM in DEXTROSE 5% IN WATER 50 ML IV SCH (15:27)
[2023-12-17 07:03] LABS: Basophils # (Auto) 0.02 K/mcL (0.00-0.30); Basophils % (Auto) 0.2 % (0.0-2.0); Eosinophils # (Auto) 0.05 K/mcL (0.00-0.70); Eosinophils % (Auto) 0.6 % (0.0-7.0); Hematocrit 36.5 % (40.1-51.0); Hemoglobin 10.4 g/dL (13.7-17.5); Lymphocytes # (Auto) 0.88 K/mcL (1.50-4.80); Lymphocytes % (Auto) 10.6 % (15.5-49.0); Mean Cell Volume 91.7 fL (80.0-100.0); Mean Corpuscular HGB Conc 28.5 g/dL (31.0-36.0); Mean Platelet Volume 13.5 fL (8.8-12.5); Monocytes # (Auto) 1.06 K/mcL (0.10-0.90); Monocytes % (Auto) 12.8 % (1.0-12.0); Platelet Count 29 K/mcL (140-440); RBC 3.98 M/mcL (4.63-6.08); Red Cell Distribution Width 14.1 % (11.5-14.5); WBC 8.3 K/mcL (4.5-11.0)
[2023-12-17 07:31] LABS: ALT/SGPT 6 U/L (<40); AST/SGOT 18 U/L (<40); Albumin 2.8 gm/dL (3.2-5.2); Albumin/Globulin Ratio 0.8 (1.0-2.3); Alkaline Phosphatase 69 U/L (39-117); Bilirubin,Direct < 0.2 mg/dL (0-0.3); Bilirubin,Total 0.3 mg/dL (0.1-1.0); Blood Urea Nitrogen 6 mg/dL (6-20); Carbon Dioxide 30 mmol/L (22-30); Chloride 104 mmol/L (96-108); Globulin 3.3 gm/dL (2.2-3.7); Glomerular Filtration Rate 175; Glucose 104 mg/dL (70-105); Lactate Dehydrogenase 136 U/L (135-225); Phosphorous 3.6 mg/dL (2.5-4.5); Potassium 4.1 mmol/L (3.3-5.1); Sodium 144 mmol/L (133-145); Triglycerides 93 mg/dL (<150); Uric Acid 2.7 mg/dL (2.5-8.0)
[2023-12-17] MEDS ORDERED: METOPROLOL TARTRATE 5 MG/5 ML VIAL IV PRN (08:02)
[2023-12-17] MEDS: CEFEPIME 2 GM VIAL IV SCH (08:29)
[2023-12-17 10:17] LABS: INR 1.2 (0.9-1.1); Partial Thromboplastin Time 37.2 sec (20.0-37.0); Prothrombin Time 15.4 sec (11.9-14.5)
[2023-12-17 15:50] LABS: Appearance,Urine Turbid (Clear); Bacteria,Urine Few /hpf (0); Bilirubin,Urine Negative (Negative); Color,Urine Yellow; Culture Indicated,Urine Yes; Glucose,Urine (UA) Negative (Negative); Ketones,Urine Negative (Negative); Leukocyte Esterase,Urine Small /uL (Negative); Mucus,Urine Few /hpf; Nitrate,Urine Positive (Negative); Protein,Urine 30 mg/dL (Negative); Urine Blood Large ery/mcL (Negative); Urine RBC > 182 /hpf (0-1); Urine Squamous Epithelial Cell 0 /hpf (0-4); Urine WBC 15 /hpf (0-4); Urobilinogen,Urine Normal
[2023-12-18 06:37] LABS: Basophils # (Auto) 0.01 K/mcL (0.00-0.30); Basophils % (Auto) 0.1 % (0.0-2.0); Eosinophils # (Auto) 0.06 K/mcL (0.00-0.70); Eosinophils % (Auto) 0.8 % (0.0-7.0); Hematocrit 36.1 % (40.1-51.0); Hemoglobin 10.5 g/dL (13.7-17.5); Lymphocytes % (Auto) 9.4 % (15.5-49.0); Mean Cell Volume 88.5 fL (80.0-100.0); Mean Corpuscular HGB Conc 29.1 g/dL (31.0-36.0); Monocytes # (Auto) 0.56 K/mcL (0.10-0.90); Monocytes % (Auto) 7.5 % (1.0-12.0); Neutrophils % (Auto) 81.1 % (38.0-78.0); Platelet Count 19 K/mcL (140-440); RBC 4.08 M/mcL (4.63-6.08); Red Cell Distribution Width 13.7 % (11.5-14.5); WBC 7.4 K/mcL (4.5-11.0)
[2023-12-18] MEDS: 0.9 % SODIUM CHLORIDE 250 ML IV SCH (12:45)
[2023-12-18] MEDS: ceFAZolin 1 GM VIAL IV SCH (21:50)
[2023-12-18] MEDS: ceFAZolin 1 GM VIAL ONE (21:51)
[2023-12-18] MEDS: metroNIDAZOLE 500 MG TABLET PO SCH (21:53)
[2023-12-19 06:51] LABS: Blood Urea Nitrogen 8 mg/dL (6-20); Carbon Dioxide 40 mmol/L (22-30); Chloride 97 mmol/L (96-108); Glomerular Filtration Rate 175; Glucose 84 mg/dL (70-105); Potassium 3.9 mmol/L (3.3-5.1); Sodium 142 mmol/L (133-145)
[2023-12-19 06:54] LABS: Basophils # (Auto) 0.02 K/mcL (0.00-0.30); Basophils % (Auto) 0.3 % (0.0-2.0); Eosinophils # (Auto) 0.12 K/mcL (0.00-0.70); Eosinophils % (Auto) 1.7 % (0.0-7.0); Hematocrit 36.3 % (40.1-51.0); Hemoglobin 10.8 g/dL (13.7-17.5); Lymphocytes # (Auto) 0.88 K/mcL (1.50-4.80); Lymphocytes % (Auto) 12.7 % (15.5-49.0); Mean Cell Volume 87.5 fL (80.0-100.0); Mean Corpuscular HGB Conc 29.8 g/dL (31.0-36.0); Mean Platelet Volume 11.9 fL (8.8-12.5); Monocytes # (Auto) 0.65 K/mcL (0.10-0.90); Monocytes % (Auto) 9.4 % (1.0-12.0); Platelet Count 58 K/mcL (140-440); RBC 4.15 M/mcL (4.63-6.08); Red Cell Distribution Width 13.6 % (11.5-14.5); WBC 6.9 K/mcL (4.5-11.0)
[2023-12-19] MEDS: acetaZOLAMIDE SOD 500 MG VIAL IV ONE (09:03)
[2023-12-19] MEDS: ALBUMIN HUMAN 12.5 GM/50 ML VIAL IV ONE (09:04)
[2023-12-19] MEDS ORDERED: hydrALAZINE 20 MG/ML VIAL IV PRN (10:17)
[2023-12-19] MEDS ORDERED: LABETALOL HCL 20 MG/4 ML VIAL IV PRN (10:17)
[2023-12-19] MEDS: traMADol 50 MG TABLET PO SCH (10:38)
[2023-12-19] MEDS ORDERED: GADOBENATE DIMEGLUMINE 20 ML/VIAL IV ONE (11:36)
[2023-12-19] MEDS: LEVOFLOXACIN 250 MG TABLET PO SCH (21:45)
[2023-12-20 07:10] LABS: Blood Urea Nitrogen 7 mg/dL (6-20); Calcium 9.2 mg/dL (8.6-10.4); Carbon Dioxide 33 mmol/L (22-30); Chloride 96 mmol/L (96-108); Glomerular Filtration Rate 175; Glucose 76 mg/dL (70-105); Potassium 3.8 mmol/L (3.3-5.1); Sodium 139 mmol/L (133-145)
[2023-12-20 07:19] LABS: Basophils # (Auto) 0.03 K/mcL (0.00-0.30); Basophils % (Auto) 0.4 % (0.0-2.0); Eosinophils # (Auto) 0.09 K/mcL (0.00-0.70); Eosinophils % (Auto) 1.2 % (0.0-7.0); Hematocrit 37.5 % (40.1-51.0); Hemoglobin 11.2 g/dL (13.7-17.5); Lymphocytes # (Auto) 0.86 K/mcL (1.50-4.80); Lymphocytes % (Auto) 11.7 % (15.5-49.0); Mean Cell Volume 87.4 fL (80.0-100.0); Mean Corpuscular HGB Conc 29.9 g/dL (31.0-36.0); Mean Platelet Volume 12.1 fL (8.8-12.5); Monocytes # (Auto) 0.68 K/mcL (0.10-0.90); Monocytes % (Auto) 9.3 % (1.0-12.0); Neutrophils % (Auto) 76.4 % (38.0-78.0); Platelet Count 92 K/mcL (140-440); RBC 4.29 M/mcL (4.63-6.08); Red Cell Distribution Width 13.7 % (11.5-14.5); WBC 7.4 K/mcL (4.5-11.0)
[2023-12-20] MEDS ORDERED: 0.9 % SODIUM CHLORIDE 10 ML SYRINGE IV PRN (10:48)
[2023-12-20 12:51] VITALS: TEMP 99
[2023-12-20] MEDS: METOPROLOL TARTRATE 25 MG TABLET PO SCH (13:50)
[2023-12-20] MEDS: DAPTOmycin 500 MG VIAL IV ONE (14:54)
[2023-12-20] MEDS ORDERED: SODIUM CHLORIDE IRRIG SOLUTION 500 ML BOTTLE IRR ONE (15:04)
[2023-12-20 16:21] VITALS: O2SAT 90
[2023-12-20] MEDS ORDERED: 0.9 % SODIUM CHLORIDE 10 ML SYRINGE IV SCH (21:00)
== END 2023-12-20 15:30 | DRG 689 ==
LOC: ED 00:04 → MEDSUR 03:55 → ICU 11:29 → MEDSUR 12-15 17:35 → ICU 12-16 07:34
PROVIDERS: ADMIT Internal Medicine; ATTEND Internal Medicine

== ENCOUNTER 2023-12-22 14:13 | Observation (INO) ==
[2023-12-22] MEDS ORDERED: IOPAMIDOL 100 ML BOTTLE IV ONE (14:14)
[2023-12-22 15:14] LABS: Basophils # (Auto) 0.03 K/mcL (0.00-0.30); Basophils % (Auto) 0.2 % (0.0-2.0); Eosinophils # (Auto) 0.05 K/mcL (0.00-0.70); Eosinophils % (Auto) 0.3 % (0.0-7.0); Hematocrit 42.2 % (40.1-51.0); Lymphocytes # (Auto) 1.15 K/mcL (1.50-4.80); Lymphocytes % (Auto) 7.9 % (15.5-49.0); Mean Cell Volume 83.7 fL (80.0-100.0); Mean Corpuscular HGB Conc 30.8 g/dL (31.0-36.0); Monocytes # (Auto) 1.05 K/mcL (0.10-0.90); Monocytes % (Auto) 7.2 % (1.0-12.0); Neutrophils % (Auto) 83.6 % (38.0-78.0); Platelet Count 222 K/mcL (140-440); RBC 5.04 M/mcL (4.63-6.08); Red Cell Distribution Width 14.6 % (11.5-14.5); WBC 14.6 K/mcL (4.5-11.0)
[2023-12-22] MEDS: ACETAMINOPHEN 500 MG TABLET PO ONE (15:17)
[2023-12-22 15:30] LABS: Blood Urea Nitrogen 13 mg/dL (6-20); Calcium 9.3 mg/dL (8.6-10.4); Carbon Dioxide 29 mmol/L (22-30); Chloride 95 mmol/L (96-108); Glomerular Filtration Rate 148; Glucose 94 mg/dL (70-105); Potassium 3.6 mmol/L (3.3-5.1); Sodium 137 mmol/L (133-145)
[2023-12-22] MEDS: 0.9 % SODIUM CHLORIDE 1,000 ML IV ONE (15:50)
[2023-12-22] MEDS: IPRATROPIUM/ALBUTEROL 3 ML AMPUL.NEB NEB ONE (18:53)
[2023-12-22] MEDS: cefTRIAXone 2 GM in DEXTROSE 5% IN WATER 50 ML IV ONE (19:03)
[2023-12-22] MEDS: AZITHROMYCIN 500 MG in DEXTROSE 5% IN WATER 250 ML IV ONE (19:03)
[2023-12-22] MEDS ORDERED: ONDANSETRON 4 MG/2 ML VIAL IV PRN (21:26)
[2023-12-22] MEDS: FUROSEMIDE 40 MG/4 ML VIAL IV ONE ×2 (23:07→23:09)
[2023-12-22] MEDS: METOPROLOL SUCCINATE 50 MG TAB.XL.24H PO SCH (23:08)
[2023-12-22] MEDS: DOCUSATE SODIUM 100 MG CAPSULE PO SCH (23:08)
[2023-12-22] MEDS: BACLOFEN 10 MG TABLET PO ONE (23:08)
[2023-12-22] MEDS: SENNOSIDES 1 TABLET PO SCH (23:09)
[2023-12-22] MEDS: 0.9 % SODIUM CHLORIDE 10 ML SYRINGE IV SCH (23:09)
[2023-12-22] MEDS: metroNIDAZOLE 500 MG TABLET PO SCH (23:09)
[2023-12-23] MEDS: ACETAMINOPHEN 325 MG TABLET PO PRN (02:19)
[2023-12-23] MEDS: ACETAMINOPHEN 325 MG TABLET PO ONE (02:41)
[2023-12-23 06:11] LABS: Basophils # (Auto) 0.01 K/mcL (0.00-0.30); Basophils % (Auto) 0.1 % (0.0-2.0); Eosinophils # (Auto) 0.04 K/mcL (0.00-0.70); Eosinophils % (Auto) 0.4 % (0.0-7.0); Hematocrit 39.2 % (40.1-51.0); Hemoglobin 11.8 g/dL (13.7-17.5); Lymphocytes # (Auto) 1.26 K/mcL (1.50-4.80); Mean Cell Volume 86.3 fL (80.0-100.0); Mean Corpuscular HGB Conc 30.1 g/dL (31.0-36.0); Mean Platelet Volume 10.9 fL (8.8-12.5); Monocytes # (Auto) 0.77 K/mcL (0.10-0.90); Monocytes % (Auto) 8.5 % (1.0-12.0); Neutrophils % (Auto) 76.2 % (38.0-78.0); Platelet Count 212 K/mcL (140-440); RBC 4.54 M/mcL (4.63-6.08); Red Cell Distribution Width 14.8 % (11.5-14.5)
[2023-12-23 06:27] LABS: ALT/SGPT 7 U/L (<40); AST/SGOT 31 U/L (<40); Albumin 3.3 gm/dL (3.2-5.2); Alkaline Phosphatase 74 U/L (39-117); Bilirubin,Direct < 0.2 mg/dL (0-0.3); Bilirubin,Total 0.4 mg/dL (0.1-1.0); Blood Urea Nitrogen 12 mg/dL (6-20); Calcium 8.7 mg/dL (8.6-10.4); Carbon Dioxide 30 mmol/L (22-30); Chloride 98 mmol/L (96-108); Globulin 3.3 gm/dL (2.2-3.7); Glomerular Filtration Rate 148; Glucose 86 mg/dL (70-105); Lactate Dehydrogenase 119 U/L (135-225); Phosphorous 3.8 mg/dL (2.5-4.5); Potassium 3.5 mmol/L (3.3-5.1); Sodium 138 mmol/L (133-145); Triglycerides 121 mg/dL (<150); Uric Acid 4.9 mg/dL (2.5-8.0)
[2023-12-23] MEDS: DAPTOmycin 500 MG VIAL IV SCH (08:41)
[2023-12-23] MEDS: BACLOFEN 10 MG TABLET PO SCH ×2 (08:43→12:31)
[2023-12-23] MEDS: LEVOFLOXACIN 250 MG TABLET PO SCH (08:43)
[2023-12-23] MEDS: ENOXAPARIN 40 MG/0.4 ML SYRINGE SQ SCH (08:43)
[2023-12-23] MEDS: ALTEPLASE 2 MG VIAL IV ONE (09:42)
[2023-12-23 14:22] LABS: LDH,Pleural Fluid 107 U/L (<122); Total Protein,Body Fluid 4.2 gm/dL
[2023-12-23 14:44] LABS: Appearance,Pleural Fluid Hazy; Basophils,Pleural Fluid 1 %; Color,Pleural Fluid Red; Lymphocytes,Pleural Fluid 50 %; Mesothelial,Pleural Fluid 6 %; Monocytes,Pleural Fluid 41 %; Neutrophils,Pleural Fluid 2 %; Nucleated Cells,Pleural Fld 3330 /cumm; RBC,Pleural Fluid <50,000 /cumm
[2023-12-24] MEDS: IBUPROFEN 200 MG TABLET PO PRN (11:09)
[2023-12-24] MEDS: APIXABAN 2.5 MG TABLET PO SCH (21:23)
[2023-12-25 12:02] VITALS: TEMP 97.6
[2023-12-25 13:47] VITALS: O2SAT 98
== END 2023-12-25 14:27 ==
LOC: ED 14:13 → MEDSUR 14:13
PROVIDERS: ADMIT Internal Medicine; ATTEND Internal Medicine

== ENCOUNTER 2024-09-24 08:39 | Inpatient (IN) ==
[2024-09-24] MEDS ORDERED: LIDOCAINE 2% PF 5 ML VIAL ONE (09:27)
[2024-09-24] MEDS ORDERED: MAGNESIUM SULFATE 2 GM/50 ML BAG IV ONE (09:42)
[2024-09-24] MEDS ORDERED: ONDANSETRON 4 MG/2 ML VIAL ONE (09:42)
[2024-09-24] MEDS ORDERED: DEXAMETHASONE 10 MG/ML VIAL ONE (09:42)
[2024-09-24] MEDS ORDERED: GLYCOPYRROLATE 0.2 MG/ML VIAL IV ONE ×2 (09:42→11:29)
[2024-09-24] MEDS ORDERED: FAMOTIDINE/PF 20 MG/2 ML VIAL IV ONE (09:43)
[2024-09-24] MEDS: ceFAZolin 2 GM in DEXTROSE 5% IN WATER 50 ML IV SCH (10:11)
[2024-09-24] MEDS ORDERED: fentaNYL 100 MCG/2 ML VIAL ONE (10:30)
[2024-09-24] MEDS ORDERED: PROPOFOL 200 MG/20 ML VIAL IV ONE ×2 (10:31→11:20)
[2024-09-24] MEDS ORDERED: hydrALAZINE 20 MG/ML VIAL ONE (11:42)
[2024-09-24] MEDS ORDERED: ESMOLOL 100 MG/10 ML VIAL IV ONE (11:51)
[2024-09-24] MEDS ORDERED: PHENYLephrine 1 MG/10 ML SYRINGE (ANEST) ONE (11:59)
[2024-09-24] MEDS ORDERED: IPRATROPIUM/ALBUTEROL 3 ML AMPUL.NEB NEB PRN (12:20)
[2024-09-24] MEDS ORDERED: ONDANSETRON 4 MG/2 ML VIAL IV PRN (12:54)
[2024-09-24] MEDS ORDERED: HYDROcodone/APAP 5/325MG TABLET PO PRN (12:54)
[2024-09-24] MEDS ORDERED: ONDANSETRON 4 MG ODT TABLET SL PRN (12:54)
[2024-09-24] MEDS ORDERED: morphine 4 MG/ML VIAL IV PRN (12:54)
[2024-09-24] MEDS: ACETAMINOPHEN 1,000 MG/100 ML BAG IV ONE (13:31)
[2024-09-24] MEDS: 0.9 % SODIUM CHLORIDE 1,000 ML IV SCH (14:21)
[2024-09-24] MEDS: 0.9 % SODIUM CHLORIDE 10 ML SYRINGE IV SCH (14:21)
[2024-09-24] MEDS: DOCUSATE SODIUM 100 MG CAPSULE PO SCH (21:42)
[2024-09-24] MEDS: SENNOSIDES 1 TABLET PO SCH (21:42)
[2024-09-24] MEDS: ACETAMINOPHEN 325 MG TABLET PO PRN (21:48)
[2024-09-25 06:14] LABS: Hematocrit 30.1 % (40.1-51.0); Hemoglobin 8.8 g/dL (13.7-17.5); Mean Cell Volume 81.1 fL (80.0-100.0); Mean Corpuscular HGB Conc 29.2 g/dL (31.0-36.0); Mean Platelet Volume 9.8 fL (8.8-12.5); Platelet Count 433 K/mcL (140-440); RBC 3.71 M/mcL (4.63-6.08); Red Cell Distribution Width 15.5 % (11.5-14.5); WBC 13.4 K/mcL (4.5-11.0)
[2024-09-25 06:35] LABS: ALT/SGPT 6 U/L (<40); AST/SGOT 11 U/L (<40); Albumin 2.9 gm/dL (3.2-5.2); Albumin/Globulin Ratio 0.8 (1.0-2.3); Alkaline Phosphatase 77 U/L (39-117); Bilirubin,Total 0.4 mg/dL (0.1-1.0); Blood Urea Nitrogen 16 mg/dL (6-20); Calcium 8.4 mg/dL (8.6-10.4); Carbon Dioxide 25 mmol/L (22-30); Chloride 104 mmol/L (96-108); Globulin 3.6 gm/dL (2.2-3.7); Glomerular Filtration Rate 148; Glucose 107 mg/dL (70-105); Sodium 138 mmol/L (133-145)
[2024-09-25 08:01] LABS: Band Neutrophils % 1 % (0-10); Lymphocytes % 4 % (15-49); Microcytosis 1+ (None Seen); Monocytes % (Manual) 2 % (1-12); Platelet Estimate NORMAL (Normal); RBC Morphology ABNORMAL (Normal); Segmented Neutrophils % 93 % (38-78)
[2024-09-25] MEDS ORDERED: ACETAMINOPHEN 500 MG TABLET PO PRN (08:23)
[2024-09-25] MEDS ORDERED: TRIAMCINOLONE CREAM 0.1% 15G 1 DOSE TUBE TOPICAL PRN (08:23)
[2024-09-25] MEDS ORDERED: traMADol 50 MG TABLET PO PRN (08:35)
[2024-09-25] MEDS: VITAMIN D3 125 MCG TABLET PO SCH (10:26)
[2024-09-25] MEDS: ENOXAPARIN 40 MG/0.4 ML SYRINGE SQ SCH (10:27)
[2024-09-25] MEDS: BACLOFEN 10 MG TABLET PO SCH ×2 (10:32→12:09)
[2024-09-25] MEDS: METOPROLOL SUCCINATE 50 MG TAB.XL.24H PO SCH (20:13)
[2024-09-26] MEDS: ACETIC ACID 0.25% IR SCH (08:17)
[2024-09-26] MEDS: BENZONATATE 100 MG CAPSULE PO PRN (16:38)
[2024-09-26] MEDS ORDERED: BENZOCAINE/MENTHOL 1 LOZENGE PO PRN (19:04)
[2024-09-27 05:53] LABS: Basophils # (Auto) 0.02 K/mcL (0.00-0.30); Basophils % (Auto) 0.2 % (0.0-2.0); Eosinophils # (Auto) 0.07 K/mcL (0.00-0.70); Eosinophils % (Auto) 0.6 % (0.0-7.0); Hematocrit 28.3 % (40.1-51.0); Hemoglobin 8.4 g/dL (13.7-17.5); Lymphocytes # (Auto) 1.11 K/mcL (1.50-4.80); Lymphocytes % (Auto) 9.8 % (15.5-49.0); Mean Cell Volume 81.1 fL (80.0-100.0); Mean Corpuscular HGB Conc 29.7 g/dL (31.0-36.0); Mean Platelet Volume 9.4 fL (8.8-12.5); Monocytes # (Auto) 1.22 K/mcL (0.10-0.90); Monocytes % (Auto) 10.8 % (1.0-12.0); Neutrophils % (Auto) 78.3 % (38.0-78.0); Platelet Count 327 K/mcL (140-440); RBC 3.49 M/mcL (4.63-6.08); Red Cell Distribution Width 15.7 % (11.5-14.5); WBC 11.3 K/mcL (4.5-11.0)
[2024-09-27 11:53] VITALS: TEMP 98.5; O2SAT 96
== END 2024-09-27 14:31 | DRG 573 ==
LOC: MEDSUR 08:39 → EDSTATUS 10:30
PROVIDERS: ADMIT Surgery; ATTEND Internal Medicine

== ENCOUNTER 2025-04-28 09:30 | Inpatient (IN) ==
[2025-04-28 10:41] LABS: Basophils # (Auto) 0.03 K/mcL (0.00-0.30); Basophils % (Auto) 0.4 % (0.0-2.0); Eosinophils # (Auto) 0.15 K/mcL (0.00-0.70); Eosinophils % (Auto) 1.9 % (0.0-7.0); Hematocrit 42.1 % (40.1-51.0); Hemoglobin 12.4 g/dL (13.7-17.5); Lymphocytes # (Auto) 1.59 K/mcL (1.50-4.80); Lymphocytes % (Auto) 20.1 % (15.5-49.0); Mean Corpuscular HGB Conc 29.5 g/dL (31.0-36.0); Monocytes # (Auto) 0.47 K/mcL (0.10-0.90); Monocytes % (Auto) 5.9 % (1.0-12.0); Neutrophils % (Auto) 71.3 % (38.0-78.0); Platelet Count 407 K/mcL (140-440); RBC 5.40 M/mcL (4.63-6.08); WBC 7.9 K/mcL (4.5-11.0)
[2025-04-28 11:08] LABS: ALT/SGPT 7 U/L (<40); AST/SGOT 16 U/L (<40); Albumin 4.0 gm/dL (3.2-5.2); Albumin/Globulin Ratio 1.1 (1.0-2.3); Alkaline Phosphatase 110 U/L (39-117); Anion Gap 15.0 (8.0-16.0); Bilirubin,Total 0.4 mg/dL (0.1-1.0); Blood Urea Nitrogen 16 mg/dL (6-20); Calcium 9.1 mg/dL (8.6-10.4); Carbon Dioxide 23 mmol/L (22-30); Chloride 102 mmol/L (96-108); Globulin 3.6 gm/dL (2.2-3.7); Glucose 89 mg/dL (70-105); Potassium 4.3 mmol/L (3.3-5.1); Sodium 140 mmol/L (133-145)
[2025-04-28] MEDS: ERTAPENEM 1 GM in 0.9 % SODIUM CHLORIDE 50 ML IV ONE (12:04)
[2025-04-28] MEDS: diphenhydrAMINE 50 MG/ML VIAL IV ONE (12:04)
[2025-04-28] MEDS ORDERED: POTASSIUM CHLORIDE 20 MEQ TABLET PO PRN ×2 (14:34)
[2025-04-28] MEDS ORDERED: POTASSIUM CHLORIDE 40 MEQ in DEXTROSE 5% IN WATER 500 ML IV PRN (14:34)
[2025-04-28] MEDS ORDERED: METOPROLOL SUCCINATE 50 MG TAB.XL.24H PO PRN (14:34)
[2025-04-28] MEDS ORDERED: MAGNESIUM SULFATE 2 GM/50 ML BAG IV PRN (14:34)
[2025-04-28] MEDS ORDERED: ONDANSETRON 4 MG/2 ML VIAL IV PRN (14:34)
[2025-04-28] MEDS ORDERED: ENALAPRILAT 1.25 MG/ML VIAL IV PRN (14:34)
[2025-04-28] MEDS ORDERED: POLYETHYLENE GLYCOL 3350 17 GM PACKET PO PRN (14:34)
[2025-04-28] MEDS ORDERED: BENZOCAINE/MENTHOL 1 LOZENGE PO PRN (14:34)
[2025-04-28] MEDS ORDERED: SENNOSIDES 1 TABLET PO PRN (14:34)
[2025-04-28] MEDS ORDERED: IPRATROPIUM/ALBUTEROL 3 ML AMPUL.NEB NEB PRN (14:34)
[2025-04-28] MEDS ORDERED: METOCLOPRAMIDE 10 MG/2 ML VIAL IV PRN (14:34)
[2025-04-28] MEDS: ACETAMINOPHEN 325 MG TABLET PO PRN (16:43)
[2025-04-28] MEDS: BACLOFEN 10 MG TABLET PO SCH (16:44)
[2025-04-28] MEDS: 0.9 % SODIUM CHLORIDE 10 ML SYRINGE IV SCH (16:44)
[2025-04-28] MEDS: DOCUSATE SODIUM 100 MG CAPSULE PO SCH (19:49)
[2025-04-29 07:03] LABS: ALT/SGPT < 5 U/L (<40); AST/SGOT 10 U/L (<40); Albumin 3.4 gm/dL (3.2-5.2); Albumin/Globulin Ratio 1.1 (1.0-2.3); Alkaline Phosphatase 102 U/L (39-117); Anion Gap 10.0 (8.0-16.0); Bilirubin,Direct 0.2 mg/dL (<0.3); Bilirubin,Total 0.4 mg/dL (0.1-1.0); Blood Urea Nitrogen 21 mg/dL (6-20); Calcium 8.6 mg/dL (8.6-10.4); Carbon Dioxide 26 mmol/L (22-30); Chloride 102 mmol/L (96-108); Globulin 3.0 gm/dL (2.2-3.7); Glucose 98 mg/dL (70-105); Phosphorous 3.5 mg/dL (2.5-4.5); Potassium 4.1 mmol/L (3.3-5.1); Sodium 138 mmol/L (133-145); Triglycerides 90 mg/dL (<150); Uric Acid 4.7 mg/dL (2.5-8.0)
[2025-04-29 07:07] LABS: Basophils # (Auto) 0.03 K/mcL (0.00-0.30); Basophils % (Auto) 0.3 % (0.0-2.0); Eosinophils # (Auto) 0.11 K/mcL (0.00-0.70); Eosinophils % (Auto) 1.1 % (0.0-7.0); Hematocrit 34.1 % (40.1-51.0); Hemoglobin 10.2 g/dL (13.7-17.5); Lymphocytes # (Auto) 1.36 K/mcL (1.50-4.80); Lymphocytes % (Auto) 13.7 % (15.5-49.0); Mean Corpuscular HGB Conc 29.9 g/dL (31.0-36.0); Monocytes # (Auto) 0.87 K/mcL (0.10-0.90); Monocytes % (Auto) 8.8 % (1.0-12.0); Neutrophils % (Auto) 76.0 % (38.0-78.0); Platelet Count 378 K/mcL (140-440); RBC 4.41 M/mcL (4.63-6.08); WBC 9.9 K/mcL (4.5-11.0)
[2025-04-29] MEDS: ENOXAPARIN 40 MG/0.4 ML SYRINGE SQ SCH (08:37)
[2025-04-29] MEDS: ERTAPENEM 1 GM in 0.9 % SODIUM CHLORIDE 50 ML IV SCH (09:14)
[2025-05-01] MEDS ORDERED: 0.9 % SODIUM CHLORIDE 10 ML SYRINGE IV PRN (08:02)
[2025-05-01] MEDS: 0.9 % SODIUM CHLORIDE 10 ML SYRINGE IV SCH (09:54)
[2025-05-01] MEDS: HEPARIN 10 UNITS/ML 5ML FLUSH IV SCH ×2 (11:33→11:34)
[2025-05-02 18:32] VITALS: TEMP 97.6; O2SAT 96
== END 2025-05-02 12:11 | disposition swing bed (61) | DRG 592 ==
LOC: ED 09:30 → MEDSUR 14:09
PROVIDERS: ADMIT Internal Medicine; ATTEND Internal Medicine